=== PATIENT | female | born 1945 | race Caucasian/White ===

== ENCOUNTER 2016-12-20 22:02 | Emergency (ER) | payer MEDICARE, OTHER ==
[~2016-12-20] VITALS: Ht 152.4 cm; Wt 56.7 kg
[~2016-12-20 22:02] MED LIST: ALBUTEROL MININEB NEB; ALBUTEROL17 GM INH; ATENOLOL50 MG PO; BENZONATATE PO; DOXYCYCLINE PO; MACROBID100 M1 PO; PHENERGAN25 MG PO; PREDNISONE PO; PRILOSEC20 M1 PO; ZYRTEC PO
== END 2016-12-21 00:06 | disposition left against medical advice (07) ==
LOC: CED 22:02
DX: Z53.21 Procedure and treatment not carried out due to patient leaving prior to being seen by health care provider (principal)